=== PATIENT | female | born 1970 | race Caucasian/White ===

== ENCOUNTER 2022-10-20 13:59 | Outpatient (CLI) | payer OTHER, SELFPAY | END 2022-10-20 14:00 | disposition home or self-care (01) | LOC: NFLDREF 10-22 13:43 | PROVIDERS: PCP Nurse Practitioner Family; Visit Provider Nurse Practitioner Family | DX: R30.0 Dysuria (principal); R21 Rash and other nonspecific skin eruption; N30.90 Cystitis, unspecified without hematuria; L50.9 Urticaria, unspecified | CPT/HCPCS: 87086; 87186 ==